=== PATIENT | female | born 1935 | race Caucasian/White ===

== ENCOUNTER 2024-05-09 21:13 | Inpatient (IN) | payer MEDICARE ==
[~2024-05-09] VITALS: Ht 165.1 cm; Wt 67.8 kg
[~2024-05-09 21:13] MED LIST: ALLO100T PO; FURO20TA4 PO; LEVO50CA4 PO; METO-409 PO; MULT-1250 PO
[2024-05-09 21:46] LABS: HEMATOCRIT 33.4 % (36-48); MEAN CORPUSCULAR HEMOGLOBIN 31.7 pg (27.0-33.0); MEAN CORPUSCULAR HGB CONC 32.9 g/dL (32.0-36.0); MEAN CORPUSCULAR VOLUME 96.3 fL (79-99); PLATELET COUNT (AUTO) 213 K/uL (130-400); RED BLOOD CELL COUNT(AUTO) 3.47 MIL/uL (4.00-5.50); RED CELL DISTRIBUTION WIDTH 12.5 % (11.0-15.5); WHITE BLOOD COUNT (AUTO) 9.9 K/uL (4.8-10.8)
[2024-05-09 21:55] LABS: CREATININE 1.9 mg/dL (0.5-1.0); POTASSIUM 4.8 mmol/L (3.5-5.1)
[2024-05-09 21:59] LABS: ALBUMIN 3.4 g/dL (3.5-5.0); BILIRUBIN,TOTAL 0.3 mg/dL (0.2-1.0); TOTAL PROTEIN, SERUM 6.5 g/dL (6.0-8.3)
[2024-05-09 22:05] LABS: BASOPHILS # (AUTO) 0.07 K/uL (0.00-0.20); BASOPHILS % (AUTO) 0.7 % (0.0-5.0); EOSINOPHILS # (AUTO) 0.58 K/uL (0.00-0.70); EOSINOPHILS % (AUTO) 5.8 % (0.0-8.0); IMMATURE GRANULOCYTE ABSOLUTE 0.03 K/uL (0-1); LYMPHOCYTES # (AUTO) 2.4 K/uL (1.0-4.8); LYMPHOCYTES % (AUTO) 24.5 % (21.0-51.0); MONOCYTES # (AUTO) 0.8 K/uL (0.1-1.0); MONOCYTES % (AUTO) 7.9 % (3.0-13.0); NEUTROPHILS % (AUTO) 60.8 % (40.0-77.0)
[2024-05-09] MEDS: MORPHINE 4 MG SYG IVP ONE (22:13)
[2024-05-09] MEDS: 0.9%NACL 1000ML 1,000 ML IV SCH (22:13)
[2024-05-10] VITALS (9 sets, daily range): BP systolic 129–175; BP diastolic 57–90; PULSE 52–72; RESP 16–20; TEMP 97.9; O2SAT 97–100
[2024-05-10] MEDS ORDERED: POTASSIUM CHLORIDE 10% ELIXIR 20 MEQ/15 ML UDCUP PO PRN (00:30)
[2024-05-10] MEDS ORDERED: ACETAMINOPHEN 325 MG TAB PO PRN (00:30)
[2024-05-10] MEDS ORDERED: POTASSIUM CHLORIDE 10MEQ/100ML 100 ML IV PRN (00:30)
[2024-05-10] MEDS ORDERED: KCL 20 MEQ ERTAB PO PRN (00:30)
[2024-05-10] MEDS ORDERED: ONDANSETRON 4MG INJ IV PRN (00:30)
[2024-05-10] MEDS: KETOROLAC 15MG/ML VIAL (15MG/ML) IV PRN (01:36)
[2024-05-10] MEDS: 0.9%NACL 1000ML 1,000 ML IV SCH (01:36)
[2024-05-10 06:08] LABS: BASOPHILS # (AUTO) 0.04 K/uL (0.00-0.20); BASOPHILS % (AUTO) 0.5 % (0.0-5.0); EOSINOPHILS # (AUTO) 0.37 K/uL (0.00-0.70); EOSINOPHILS % (AUTO) 4.2 % (0.0-8.0); HEMATOCRIT 29.3 % (36-48); IMMATURE GRANULOCYTE ABSOLUTE 0.04 K/uL (0-1); LYMPHOCYTES # (AUTO) 2.6 K/uL (1.0-4.8); LYMPHOCYTES % (AUTO) 29.4 % (21.0-51.0); MEAN CORPUSCULAR HEMOGLOBIN 31.6 pg (27.0-33.0); MEAN CORPUSCULAR HGB CONC 32.8 g/dL (32.0-36.0); MEAN CORPUSCULAR VOLUME 96.4 fL (79-99); MONOCYTES # (AUTO) 0.8 K/uL (0.1-1.0); MONOCYTES % (AUTO) 8.8 % (3.0-13.0); NEUTROPHILS % (AUTO) 56.6 % (40.0-77.0); PLATELET COUNT (AUTO) 182 K/uL (130-400); RED BLOOD CELL COUNT(AUTO) 3.04 MIL/uL (4.00-5.50); RED CELL DISTRIBUTION WIDTH 12.4 % (11.0-15.5); WHITE BLOOD COUNT (AUTO) 8.8 K/uL (4.8-10.8)
[2024-05-10 06:22] LABS: INR 0.99 (0.85-1.15); PROTHROMBIN TIME 10.7 SEC (9.6-11.6)
[2024-05-10 06:23] LABS: PARTIAL THROMBOPLASTIN TIME 23.6 SEC (26.3-35.5)
[2024-05-10 06:35] LABS: ALBUMIN 2.9 g/dL (3.5-5.0); BILIRUBIN,TOTAL 0.3 mg/dL (0.2-1.0); CREATININE 1.6 mg/dL (0.5-1.0); MAGNESIUM 1.6 mg/dL (1.80-2.40); POTASSIUM 4.7 mmol/L (3.5-5.1); TOTAL PROTEIN, SERUM 5.7 g/dL (6.0-8.3)
[2024-05-10] MEDS: MAGNESIUM 2GM PREMIX 50ML 50 ML IV PRN (06:39)
[2024-05-10] MEDS: FAMOTIDINE 20MG TAB PO SCH (09:06)
[2024-05-10] MEDS: ACETAMINOPHEN 325 MG TAB PO PRN (09:08)
[2024-05-10] MEDS ORDERED: LEVO75 PO (10:52)
[2024-05-10] MEDS ORDERED: PHARMACY COMMUNICATION MISC SCH (11:00)
[2024-05-10] MEDS ORDERED: HYDROCODONE/ACETAMINOPHEN 7.5/325 MG TAB PO PRN ×2 (11:00)
[2024-05-10] MEDS ORDERED: POTASSIUM CHLORIDE 10MEQ SR TAB PO PRN (11:00)
[2024-05-10] MEDS: MORPHINE 2 MG SYG IVP PRN (11:39)
[2024-05-10] MEDS: ENOXAPARIN SODIUM 30 MG/0.3 ML SQ ONE (13:43)
[2024-05-11] VITALS (28 sets, daily range): BP systolic 135–177; BP diastolic 40–100; PULSE 58–99; RESP 15–18; O2SAT 100
[2024-05-11 04:15] LABS: BASOPHILS # (AUTO) 0.05 K/uL (0.00-0.20); BASOPHILS % (AUTO) 0.5 % (0.0-5.0); EOSINOPHILS # (AUTO) 0.33 K/uL (0.00-0.70); HEMATOCRIT 29.7 % (36-48); IMMATURE GRANULOCYTE ABSOLUTE 0.04 K/uL (0-1); LYMPHOCYTES # (AUTO) 3.3 K/uL (1.0-4.8); LYMPHOCYTES % (AUTO) 29.6 % (21.0-51.0); MEAN CORPUSCULAR HEMOGLOBIN 31.3 pg (27.0-33.0); MEAN CORPUSCULAR HGB CONC 33.3 g/dL (32.0-36.0); MONOCYTES % (AUTO) 8.6 % (3.0-13.0); NEUTROPHILS # (AUTO) 6.4 K/uL (1.8-7.7); NEUTROPHILS % (AUTO) 57.9 % (40.0-77.0); PLATELET COUNT (AUTO) 186 K/uL (130-400); RED BLOOD CELL COUNT(AUTO) 3.16 MIL/uL (4.00-5.50); RED CELL DISTRIBUTION WIDTH 12.7 % (11.0-15.5)
[2024-05-11 04:38] LABS: BILIRUBIN,TOTAL 0.6 mg/dL (0.2-1.0); CREATININE 1.5 mg/dL (0.5-1.0); POTASSIUM 4.3 mmol/L (3.5-5.1)
[2024-05-11] MEDS: HYDROMORPHONE 0.5 MG SYG (0.5MG/0.5ML) IVP ONE (05:08)
[2024-05-11] MEDS: LEVOTHYROXINE 50 MCG TABLET PO SCH (06:30)
[2024-05-11] MEDS ORDERED: CEFAZOLIN SODIUM 1 GM VIAL ONE (07:24)
[2024-05-11] MEDS ORDERED: MIDAZOLAM HCL 1 MG/ML 2ML VIAL ONE (07:26)
[2024-05-11] MEDS ORDERED: LIDOCAINE PF 100MG/5ML (2%) SYRINGE 5ML ONE (07:26)
[2024-05-11] MEDS ORDERED: FENTANYL CITRATE PF 50 MCG/1 ML 2ML VIAL ONE (07:26)
[2024-05-11] MEDS ORDERED: ROCURONIUM BROMIDE 10MG/1ML 5ML VL ONE (07:27)
[2024-05-11] MEDS ORDERED: PROPOFOL 10 MG/ML 20ML VIAL IV ONE (07:27)
[2024-05-11] MEDS ORDERED: ROPIVACAINE 0.5% 5MG/ML 30ML ONE (07:29)
[2024-05-11] MEDS ORDERED: ALBUMIN (HUMAN) 5% 250 ML IV ONE (07:30)
[2024-05-11] MEDS: MORPHINE 4 MG SYG ONE (07:33)
[2024-05-11] MEDS: ACETAMINOPHEN 1,000 MG/100 ML VIAL IV ONE (07:33)
[2024-05-11] MEDS: TRANEXAMIC ACID 1000MG/10ML IV ONE (08:00)
[2024-05-11] MEDS: CEFAZOLIN SODIUM 2 GM VIAL IVPB ONE (08:25)
[2024-05-11] MEDS ORDERED: EPHEDRINE SULFATE 50 MG/ML AMPULE ONE (08:26)
[2024-05-11] MEDS: LACTATED RINGERS 1000ML 1,000 ML IV ONE (08:30)
[2024-05-11] MEDS: CEFAZOLIN SODIUM 2 GM VIAL ONE ×2 (08:30→21:49)
[2024-05-11] MEDS ORDERED: ONDANSETRON 4MG INJ ONE (08:36)
[2024-05-11] MEDS ORDERED: DEXAMETHASONE SOD PHOSPHATE 4 MG/ML 1ML VIAL ONE ×2 (08:36)
[2024-05-11] MEDS ORDERED: TRANEXAMIC ACID 1000MG/10ML ONE (08:43)
[2024-05-11] MEDS: FUROSEMIDE 20 MG TABLET PO SCH (08:56)
[2024-05-11] MEDS: VIT K PO SCH (08:56)
[2024-05-11] MEDS: MULTIVIT MIN PO SCH (08:56)
[2024-05-11] MEDS: ALLOPURINOL 100 MG TABLET PO SCH (08:56)
[2024-05-11] MEDS: LUT PO SCH (08:56)
[2024-05-11] MEDS: IRON PO SCH (08:56)
[2024-05-11] MEDS: [UNRECOGNIZED DRUG - OTHER] PO SCH (08:56)
[2024-05-11] MEDS: METOPROLOL SUCCINATE 50 MG TAB.SR.24H PO SCH (08:56)
[2024-05-11] MEDS ORDERED: NEOSTIGMINE METHYLSULFATE 1MG/ML IV ONE (09:30)
[2024-05-11] MEDS ORDERED: GLYCOPYRROLATE 0.2 MG/ML 5 ML VIAL ONE (09:30)
[2024-05-11] MEDS ORDERED: POTASSIUM CHLORIDE 10% ELIXIR 20 MEQ/15 ML UDCUP PO PRN (10:30)
[2024-05-11] MEDS ORDERED: DIPHENHYDRAMINE HCL 25 MG CAPSULE PO PRN (10:30)
[2024-05-11] MEDS ORDERED: HYDROCODONE/ACETAMINOPHEN 5/325 MG TAB PO PRN (10:30)
[2024-05-11] MEDS ORDERED: POTASSIUM CHLORIDE 20MEQ/100ML 100 ML IV PRN (10:30)
[2024-05-11] MEDS ORDERED: KCL 20 MEQ ERTAB PO PRN (10:30)
[2024-05-11] MEDS ORDERED: CALCIUM CARB 500MG PO PRN (10:30)
[2024-05-11] MEDS: CEFAZOLIN SODIUM 2 GM VIAL IVPB SCH (12:40)
[2024-05-11] MEDS: PSYLLIUM SEED 1 EACH PACKET PO SCH (12:40)
[2024-05-11] MEDS: CELECOXIB 200 MG CAP PO SCH (21:40)
[2024-05-11] MEDS: HYDROCODONE/ACETAMINOPHEN 5/325 MG TAB PO PRN (21:40)
[2024-05-11] MEDS: 0.9%NACL 1000ML 1,000 ML IV SCH (21:44)
[2024-05-12] VITALS (8 sets, daily range): BP systolic 148–182; BP diastolic 63–95; PULSE 65–103; RESP 15–18; O2SAT 98–99
[2024-05-12] MEDS: MELATONIN 5 MG TABLET PO SCH (01:38)
[2024-05-12 05:38] LABS: BASOPHILS # (AUTO) 0.01 K/uL (0.00-0.20); BASOPHILS % (AUTO) 0.1 % (0.0-5.0); HEMATOCRIT 23.3 % (36-48); IMMATURE GRANULOCYTE ABSOLUTE 0.03 K/uL (0-1); LYMPHOCYTES % (AUTO) 10.6 % (21.0-51.0); MEAN CORPUSCULAR HGB CONC 33.9 g/dL (32.0-36.0); MEAN CORPUSCULAR VOLUME 94.3 fL (79-99); MONOCYTES # (AUTO) 0.8 K/uL (0.1-1.0); MONOCYTES % (AUTO) 8.3 % (3.0-13.0); NEUTROPHILS # (AUTO) 7.4 K/uL (1.8-7.7); NEUTROPHILS % (AUTO) 80.7 % (40.0-77.0); PLATELET COUNT (AUTO) 156 K/uL (130-400); RED BLOOD CELL COUNT(AUTO) 2.47 MIL/uL (4.00-5.50); RED CELL DISTRIBUTION WIDTH 12.7 % (11.0-15.5); WHITE BLOOD COUNT (AUTO) 9.1 K/uL (4.8-10.8)
[2024-05-12] MEDS: LEVOTHYROXINE 75 MCG TABLET PO SCH (05:48)
[2024-05-12 05:50] LABS: ALBUMIN 2.7 g/dL (3.5-5.0); BILIRUBIN,TOTAL 0.4 mg/dL (0.2-1.0); CREATININE 1.1 mg/dL (0.5-1.0); POTASSIUM 4.3 mmol/L (3.5-5.1); TOTAL PROTEIN, SERUM 5.6 g/dL (6.0-8.3)
[2024-05-12] MEDS: POLYETHYLENE GLYCOL 3350 17 GM POWD.PACK PO SCH (08:55)
[2024-05-12] MEDS: ENOXAPARIN SODIUM 40 MG/0.4 ML SYRINGE SQ SCH (08:58)
[2024-05-13] VITALS: BP 137/60; PULSE 68; RESP 18
[2024-05-13 04:00] VITALS: BP 142/51; PULSE 62; RESP 20
[2024-05-13 05:41] LABS: HEMATOCRIT 21.9 % (36-48); MEAN CORPUSCULAR HEMOGLOBIN 31.1 pg (27.0-33.0); MEAN CORPUSCULAR HGB CONC 32.4 g/dL (32.0-36.0); MEAN CORPUSCULAR VOLUME 96.1 fL (79-99); RED BLOOD CELL COUNT(AUTO) 2.28 MIL/uL (4.00-5.50); WHITE BLOOD COUNT (AUTO) 8.2 K/uL (4.8-10.8)
[2024-05-13 06:04] LABS: CREATININE 1.4 mg/dL (0.5-1.0); POTASSIUM 4.7 mmol/L (3.5-5.1)
[2024-05-13] MEDS: FERROUS FUMARATE 324 MG TABLET PO PRN (06:49)
[2024-05-13 08:00] VITALS: BP 144/61; PULSE 58; RESP 14; O2SAT 99
[2024-05-13] MEDS ORDERED: HYDR-4060 PO (11:04)
[2024-05-13] MEDS ORDERED: FERS325 PO (11:04)
[2024-05-13] MEDS: KETOROLAC 15MG/ML VIAL (15MG/ML) IV PRN (12:05)
[2024-05-13] MEDS ORDERED: HYDRALAZINE 20MG/ML VIAL IV PRN (15:30)
[2024-05-13 16:00] VITALS: BP 136/63; PULSE 59; RESP 14
[2024-05-13] MEDS: AMLODIPINE 2.5 MG TAB PO SCH (17:09)
[2024-05-13] MEDS: BISACODYL 5 MG TABLET.DR PO PRN (17:09)
[2024-05-13] MEDS: BISACODYL 10 MG SUPP.RECT RC PRN (17:13)
[2024-05-13 19:00] VITALS: BP 182/72; PULSE 60; RESP 14
[2024-05-14] MEDS ORDERED: BISACODYL 10 MG SUPP.RECT RC PRN (10:30)
[2024-05-15] MEDS ORDERED: FAMOTIDINE 20MG TAB PO SCH (09:00)
== END 2024-05-13 20:28 | DRG 481 ==
LOC: EDH 21:13 → EDHIP 05-10 00:11 → 4AH 05-10 02:24
PROVIDERS: ADMIT Hospitalist; ATTEND Hospitalist
PROC: 0QS636Z Reposition Right Upper Femur with Intramedullary Internal Fixation Device, Percutaneous Approach (ICD-10-PCS; principal; 2024-05-11 07:40)
DX: S72.141A Displaced intertrochanteric fracture of right femur, initial encounter for closed fracture (principal); N17.9 Acute kidney failure, unspecified; N18.4 Chronic kidney disease, stage 4 (severe); I12.9 Hypertensive chronic kidney disease with stage 1 through stage 4 chronic kidney disease, or unspecified chronic kidney disease; D64.9 Anemia, unspecified; H91.93 Unspecified hearing loss, bilateral; E03.9 Hypothyroidism, unspecified; Z79.899 Other long term (current) drug therapy; Z98.51 Tubal ligation status; W18.39XA Other fall on same level, initial encounter; Y93.89 Activity, other specified; Y99.8 Other external cause status; Y92.89 Other specified places as the place of occurrence of the external cause
CPT/HCPCS: 36415; 73503; 73522; 80048; 80053; 82948; 83735; 84484; 85025; 85027; 85610; 85730; 86850; 86900; 86901; 86923; 93005; G0378; J0690; J1100; J1170; J1650; J1885; J2001; J2250; J2270; J2405; J2704; J2710; J2795; J3010; J3475; J3490; J7030; J7120; P9045; A4216; A4222; A4223